=== PATIENT | male | born 1945 | race Caucasian/White ===

== ENCOUNTER 2022-03-07 18:37 | Inpatient (IN) | payer MEDICARE, OTHER ==
[~2022-03-07] VITALS: Ht 182.9 cm; Wt 158.8 kg
[2022-03-07 19:31] LABS: BASOPHILS ABSOLUTE AUTO 0.03 K/mm3 (0.00-0.23); BASOPHILS PERCENT AUTO 0 % (0-2); EOSINOPHILS ABSOLUTE AUTO 0.12 K/mm3 (0.00-0.68); EOSINOPHILS PERCENT AUTO 1 % (0-6); Hematocrit 43.6 % (37.0-53.0); Hemoglobin 14.6 g/dL (13.5-17.5); IMMATURE GRAN ABSOLUTE AUTO 0.06 K/mm3 (0.00-0.10); IMMATURE GRAN PERCENT AUTO 0 % (0-1); LYMPHOCYTES ABSOLUTE AUTO 0.94 K/mm3 (0.84-5.20); LYMPHOCYTES PERCENT AUTO 7 % (21-46); MONOCYTES ABSOLUTE AUTO 0.34 K/mm3 (0.16-1.47); MONOCYTES PERCENT AUTO 3 % (4-13); Mean Corpuscular HGB 31.1 pg (26.0-34.0); Mean Corpuscular HGB Conc 33.5 g/dL (31.5-36.5); Mean Corpuscular Volume 93 fL (80-100); Mean Platelet Volume 10.3 fL (9.1-12.4); NEUTROPHILS ABSOLUTE AUTO 12.33 K/mm3 (1.96-9.15); NEUTROPHILS PERCENT AUTO 89 % (41-73); Platelet Count 194 K/mm3 (150-400); RDW Coefficient Variation 13.3 % (11.7-14.2); RDW Standard Deviation 45.4 fL (35.1-46.3); White Blood Cell Count 13.82 K/mm3 (4.00-11.30)
[2022-03-07 19:49] LABS: Albumin, Blood 3.6 g/dL (3.4-5.0); Albumin/Globulin Ratio 0.9 (0.8-1.8); Bilirubin, Total 0.7 mg/dL (0.1-1.0); Bun/Creatinine Ratio 19.2 (12.0-20.0); Creatinine, Blood 0.89 mg/dL (0.60-1.20); Globulin, Blood 3.8 g/dL (2.2-4.0); Potassium, Blood 3.8 mmol/L (3.5-5.5); Total Protein, Blood 7.4 g/dL (6.4-8.2)
[2022-03-07 19:56] LABS: Influenza A, PCR NEGATIVE (NEGATIVE); Influenza B, PCR NEGATIVE (NEGATIVE); SARS-Cov-2 (COVID-19) PCR, MMC NEGATIVE (NEGATIVE)
[2022-03-07 19:57] LABS: Resp Syncytial Virus, PCR POSITIVE (NEGATIVE)
[2022-03-07] MEDS ORDERED: ALBU90OI6 INH (22:59)
[2022-03-07] MEDS ORDERED: IRBESARTAN300 M3 PO (23:00)
[2022-03-07] MEDS ORDERED: MONT10T PO (23:00)
[2022-03-07] MEDS ORDERED: ATOR20 PO (23:00)
[2022-03-07] MEDS ORDERED: TAMS.4ER PO (23:01)
[2022-03-07] MEDS ORDERED: AMLO5 PO (23:01)
[2022-03-07] MEDS ORDERED: WIXELA 100-501 EAC1 PO (23:02)
[2022-03-07] MEDS ORDERED: Carvedilol12.5 MG PO (23:02)
[2022-03-07] MEDS ORDERED: POTA20PAC PO (23:03)
[2022-03-07] MEDS ORDERED: TORSE20 PO (23:03)
[2022-03-08 01:39] LABS: Source, Urine Clean Catch
[2022-03-08 01:41] LABS: Bilirubin, Urine Neg (Neg); Blood, Urine Neg (Neg); Glucose Qualitative, Urine Neg (Neg); Ketones, Urine 1+ (Neg); Leukocyte Esterase, Urine Neg (Neg); Nitrite, Urine Neg (Neg); Protein, Urine 1+ (Neg); Specific Gravity, Urine 1.015 (1.003-1.022); Urobilinogen, Urine NORM (Normal)
[2022-03-08 01:46] LABS: Color, Urine Yellow (P-Yellow)
[2022-03-08 01:48] LABS: Appearance, Urine Hazy (Clear)
[2022-03-08 01:49] LABS: Bacteria Mod /hpf; Mucus Light (0-Heavy); Red Blood Cells, Urine 0-2 /hpf (0-2); Squamous Epithelial Cells Not Seen /hpf (Few); White Blood Cells, Urine 0-2 /hpf (0-5)
--- NOTE | 2022-03-08 06:33 | NUR ---
SHIFT SUMMARY AOX4. VSS. HAD TEMP OF 102 IN ER HOWEVER HAS BEEN AFEBRILE ON MED FLOOR. DX c RSV. REPORTS INCREASED DYSPNEA & "WHEEZY FEELING", SPO2 >90% ON 3L O2 ONLY WEARS 2L O2 @HS c CPAP @BASELINE & DOESNT WEAR O2 CONTINUOUS, LS DIM c RHONCI IN UPPER LOBES. STATES BREATHING FEELS BETTER THIS AM AFTER RECIEVING STEROID. +1 EDEMA BLE. DENIES N/V OR PAIN. IND c URINAL. PLAN TO HAVE ECHO TODAY. CALL LIGHT IN REACH & PT ABLE TO MAKE NEEDS KNOWN. WILL MONITOR.
[2022-03-08 07:28] LABS: BASOPHILS ABSOLUTE AUTO 0.05 K/mm3 (0.00-0.23); BASOPHILS PERCENT AUTO 0 % (0-2); EOSINOPHILS PERCENT AUTO 0 % (0-6); Hematocrit 40.1 % (37.0-53.0); Hemoglobin 13.2 g/dL (13.5-17.5); IMMATURE GRAN ABSOLUTE AUTO 0.27 K/mm3 (0.00-0.10); IMMATURE GRAN PERCENT AUTO 1 % (0-1); LYMPHOCYTES ABSOLUTE AUTO 1.25 K/mm3 (0.84-5.20); LYMPHOCYTES PERCENT AUTO 5 % (21-46); MONOCYTES ABSOLUTE AUTO 0.99 K/mm3 (0.16-1.47); MONOCYTES PERCENT AUTO 4 % (4-13); Mean Corpuscular HGB 31.4 pg (26.0-34.0); Mean Corpuscular HGB Conc 32.9 g/dL (31.5-36.5); Mean Corpuscular Volume 96 fL (80-100); Mean Platelet Volume 10.4 fL (9.1-12.4); NEUTROPHILS ABSOLUTE AUTO 24.34 K/mm3 (1.96-9.15); NEUTROPHILS PERCENT AUTO 91 % (41-73); Platelet Count 186 K/mm3 (150-400); RDW Coefficient Variation 13.8 % (11.7-14.2); RDW Standard Deviation 48.3 fL (35.1-46.3)
[2022-03-08 07:48] LABS: CPK Creatine Kinase 144 U/L (39-308)
[2022-03-08 07:55] LABS: Albumin/Globulin Ratio 0.8 (0.8-1.8); Bilirubin, Total 0.6 mg/dL (0.1-1.0); Bun/Creatinine Ratio 20.4 (12.0-20.0); Calcium, Blood 8.9 mg/dL (8.5-10.1); Creatinine, Blood 1.03 mg/dL (0.60-1.20); Globulin, Blood 3.7 g/dL (2.2-4.0); Potassium, Blood 4.2 mmol/L (3.5-5.5); Total Protein, Blood 6.7 g/dL (6.4-8.2)
[2022-03-08 15:46] LABS: CPK Creatine Kinase 235 U/L (39-308)
--- NOTE | 2022-03-08 19:54 | NUR ---
SUMMARY- PT INDEPENDANT IN ROOM,. TOLERATING FOOD AND FLUIDS. ROOM AIR ALL DAY, SATS ON CONT PULSE OX 93-94% CONSISTANTLY. LUNGS DIM IN BASES, EXP WHEEZE IN LRB AND RHONCHI. STARTING TO CLEAR SOME SECTETIONS TODAY, OFF WHITE, HAD BLOODY STREAK. ROBITUSSIN THIS PM TO HELP KEEP THIN. STATES HE FEELS GREAT IMPROVEMENT FROM ADMIT AND IS HOPING HE CAN BE DISCHARGED IN THE AM.
[2022-03-09 06:05] LABS: Albumin, Blood 2.9 g/dL (3.4-5.0); Anion Gap 6 mmol/L (6-16); Blood Urea Nitrogen 28 mg/dL (8-24); Bun/Creatinine Ratio 28.5 (12.0-20.0); CO2, Blood 28 mmol/L (21-32); Chloride, Blood 105 mmol/L (98-108); Creatinine, Blood 0.98 mg/dL (0.60-1.20); Glomerular Filtration Rate 81 (60-); Glucose, Blood 203 mg/dL (70-99); Phosphorus, Blood 3.1 mg/dL (2.5-4.9); Potassium, Blood 4.2 mmol/L (3.5-5.5); Sodium, Blood 139 mmol/L (136-145)
--- NOTE | 2022-03-09 06:12 | NUR ---
SHIFT SUMMARY AOX4. VSS. TELE 1ST DEGREE HB @73. DENIES PAIN, N/V. REPORTS BREATHING IS BETTER THEN YESTERDAY & IS HOPING TO DC HOME. SPO2 >90% ON RA. WORE CPAP c 3L BLEED IN T/O NIGHT. LS DIM c EXP WHEEZES IN BASES. CALL LIGHT IN REACH. WILL MONITOR.
[2022-03-09] MEDS ORDERED: ROBITUSSIN DM PO (12:09)
[2022-03-09] MEDS ORDERED: VISBIOME 112.51 EACH PO (12:10)
[2022-03-09] MEDS ORDERED: CEFD300 PO (12:11)
[2022-03-09] MEDS ORDERED: AZIT500 PO (12:11)
[2022-03-09] MEDS ORDERED: Prednisone10 MG PO (12:13)
--- NOTE | 2022-03-09 19:39 | NUR ---
SUMMARY- PT HAD ECHO DONE AND DR FREDERICK NOTED RESULTS AND SPOKE WITH PT ABOUT FOLLOW-UP WITH HIS PCP- PT WILL F/U AND OBTAIN RECORDS FROM HIS PT PORTAL. GIVEN DC INSTRUCTIONS. RX SENT TO [facility]. HERE TO PICK PT UP IN [facility], THEY ARE VISITING FROM [place] AND STAYING AT [facility]. SENT HOME WITH BELONGINGS INCLUDING CPAP AND CELL PHONE. WHEELCHAIR OUT TO [facility].
== END 2022-03-09 17:22 | disposition home or self-care (01) | DRG 871 ==
LOC: ER 18:37 → MEDS 23:26
PROVIDERS: Internal Medicine; Physician Assistant; Student in an Organized Health Care Education/Training Program; ADMIT Internal Medicine
DX: A41.89 Other specified sepsis (principal); J12.1 Respiratory syncytial virus pneumonia; J15.9 Unspecified bacterial pneumonia; J96.01 Acute respiratory failure with hypoxia; J45.901 Unspecified asthma with (acute) exacerbation; Z68.42 Body mass index [BMI] 45.0-49.9, adult; R65.20 Severe sepsis without septic shock; E66.01 Morbid (severe) obesity due to excess calories; G47.33 Obstructive sleep apnea (adult) (pediatric); R94.31 Abnormal electrocardiogram [ECG] [EKG]; N40.0 Benign prostatic hyperplasia without lower urinary tract symptoms; I10 Essential (primary) hypertension; E78.5 Hyperlipidemia, unspecified; Z20.822 Contact with and (suspected) exposure to COVID-19; Z79.51 Long term (current) use of inhaled steroids; Z79.899 Other long term (current) drug therapy; Z99.89 Dependence on other enabling machines and devices; Z91.048 Other nonmedicinal substance allergy status; Z99.81 Dependence on supplemental oxygen
CPT/HCPCS: 0241U; 36415; 71046; 80053; 80069; 81001; 82550; 83605; 83880; 84145; 84484; 85025; 87070; 87086; 87205; 93005; 93010; 94640; 94660; 94664; 94762; 96365; 96372; 96375; 96376; 99285-25; A9270; C8929; G0378; J0456; J0696; J1650; J2930; J7030; J7050; Q9957